=== PATIENT | female | born 1985 | race Two or more races ===

== ENCOUNTER 2020-06-09 05:48 | Inpatient (IN) | payer OTHER ==
[~2020-06-09] VITALS: Ht 165.1 cm; Wt 3.6 kg
[2020-06-09] MEDS ORDERED: NIFEDIPINE20 MG PO (06:26)
[2020-06-09] MEDS ORDERED: PRENATAL CAPLE1 EAC1 PO (06:27)
[2020-06-09] MEDS ORDERED: IRON325 MG PO (06:27)
[2020-06-09] MEDS ORDERED: HUMULIN 70100 UNIT/1 (06:32)
[2020-06-09] MEDS ORDERED: FOLIC ACID20 MG PO (06:33)
== END 2020-06-12 18:20 | disposition home or self-care (01) | DRG 788 ==
LOC: OB/GYN 05:48 → LDR 05:48 → O/R 08:54 → OB/GYN 14:16
PROVIDERS: ADMIT Specialist; ATTEND Specialist
PROC: 4A1HXFZ Monitoring of Products of Conception, Cardiac Rhythm, External Approach (ICD-10-PCS; 2020-06-09)
PROC: 10D00Z1 Extraction of Products of Conception, Low, Open Approach (ICD-10-PCS; principal; 2020-06-09 06:45)
DX: O65.5 Obstructed labor due to abnormality of maternal pelvic organs (principal); O34.211 Maternal care for low transverse scar from previous cesarean delivery; O24.424 Gestational diabetes mellitus in childbirth, insulin controlled; Z3A.37 37 weeks gestation of pregnancy; Z37.0 Single live birth

== ENCOUNTER 2020-06-15 16:28 | Emergency (ER) | payer OTHER ==
[~2020-06-15] VITALS: Ht 165.1 cm; Wt 68.9 kg
[~2020-06-15 16:28] MED LIST: FOLIC ACID20 MG PO; HUMULIN 70100 UNIT/1; IRON325 MG PO; NIFEDIPINE20 MG PO; PRENATAL CAPLE1 EAC1 PO
[2020-06-15] MEDS ORDERED: DICLOFENAC SODI75 MG PO (18:15)
== END 2020-06-15 19:00 | disposition home or self-care (01) ==
LOC: ER 16:28
DX: M54.2 Cervicalgia (principal); M62.838 Other muscle spasm